=== PATIENT | male | born 1985 | race Caucasian/White ===

== ENCOUNTER 2023-07-21 04:15 | Emergency (ER) | payer BC ==
[~2023-07-21] VITALS: Ht 190.5 cm; Wt 86.2 kg
[2023-07-21] MEDS ORDERED: CEFTRIAXONE /D5W 50ML IVPB **ER PYXIS IV ONE (04:58)
[2023-07-21] MEDS: CEFTRIAXONE 1 G in IV DEXTROSE 5% 50 ML IV ONE (05:09)
[2023-07-21 05:13] LABS: BASOPHILS % (AUTO) 0.8 % (0.0-2.0); EOSINOPHILS % (AUTO) 1.1 % (0.0-7.0); HEMATOCRIT 42.9 % (31.2-41.9); HEMOGLOBIN 15.2 g/dL (10.9-14.3); LYMPHOCYTES # (AUTO) 1.3 K/uL (0.8-4.8); LYMPHOCYTES % (AUTO) 28.1 % (20.5-51.5); MEAN CORPUSCULAR HEMOGLOBIN 29.8 uug (24.7-32.8); MEAN CORPUSCULAR HGB CONC 35 g/dL (32.3-35.6); MEAN CORPUSCULAR VOLUME 84.3 fL (75.5-95.3); MONOCYTES # (AUTO) 0.7 K/uL (0.1-1.30); MONOCYTES % (AUTO) 14.7 % (0.0-11.0); NEUTROPHILS # (AUTO) 2.5 K/uL (1.8-8.9); NEUTROPHILS % (AUTO) 55.3 % (38.5-71.5); PLATELET COUNT (AUTO) 151 K/uL (179-408); RED BLOOD CELL COUNT(AUTO) 5.09 MIL/uL (3.63-4.92); RED CELL DISTRIBUTION WIDTH 13.6 % (12.3-17.7); WHITE BLOOD COUNT (AUTO) 4.5 K/uL (3.8-11.8)
[2023-07-21 05:29] LABS: DIFFERENTIAL COMMENT 1
[2023-07-21] MEDS ORDERED: ACYCLOVIR 200 MG CAPSULE ONE (05:59)
[2023-07-21] MEDS: ACYCLOVIR 400 MG TABLET PO ONE (06:01)
[2023-07-21 06:07] LABS: CALCIUM 8.7 mg/dL (8.5-10.1); POTASSIUM 3.9 mmol/L (3.5-5.1)
[2023-07-21 06:13] LABS: ALBUMIN 4.2 g/dL (3.4-5.0); BILIRUBIN,TOTAL 0.8 mg/dL (0.2-1.0); TOTAL PROTEIN, SERUM 7.5 g/dL (6.4-8.2)
[2023-07-21] MEDS ORDERED: SWABABLE VALVE TRANSFER SET EA MC ONE (06:55)
[2023-07-21] MEDS ORDERED: IOHEXOL 300MG/ML 100 ML INFUS..BTL ONE (06:55)
[2023-07-21] MEDS ORDERED: IV NORMAL SALINE 250 ML IV ONE (06:57)
[2023-07-21] MEDS ORDERED: PRED50TA PO (07:46)
[2023-07-21] MEDS ORDERED: VALA10002 PO (07:46)
[2023-07-21 07:55] VITALS: BP 121/70; O2SAT 99
== END 2023-07-21 07:56 | disposition home or self-care (01) ==
LOC: ER 04:22 → EDSEX 04:22 → ER 07:56
DX: B02.9 Zoster without complications (principal); L03.211 Cellulitis of face; R51.9 Headache, unspecified
CPT/HCPCS: 99285; 96365; 70487; 80053; 85025; 87040; 36415; 83605; J0696; Q9967; A4606; A4663

== ENCOUNTER 2023-12-11 15:38 | Emergency (ER) | payer BC ==
[~2023-12-11] VITALS: Ht 190.5 cm; Wt 86.2 kg
[~2023-12-11 15:38] MED LIST: PRED50TA PO; VALA10002 PO
[2023-12-11 15:49] VITALS: O2SAT 99
[2023-12-11 16:38] LABS: BASOPHILS # (AUTO) 0.1 K/UL (0.0-0.2); BASOPHILS % (AUTO) 0.9 % (0.0-2.0); EOSINOPHILS # (AUTO) 0.1 K/uL (0.0-0.7); EOSINOPHILS % (AUTO) 1.6 % (0.0-7.0); HEMATOCRIT 40.6 % (36.7-47.1); HEMOGLOBIN 13.6 g/dL (12.5-16.3); LYMPHOCYTES # (AUTO) 1.9 K/uL (0.8-4.8); LYMPHOCYTES % (AUTO) 33.2 % (20.5-51.5); MEAN CORPUSCULAR HGB CONC 33 g/dL (32.5-36.3); MEAN CORPUSCULAR VOLUME 86.8 fL (73.0-96.2); MONOCYTES # (AUTO) 0.6 K/uL (0.1-1.30); MONOCYTES % (AUTO) 10.8 % (0.0-11.0); NEUTROPHILS % (AUTO) 53.5 % (38.5-71.5); PLATELET COUNT (AUTO) 190 K/uL (152-348); RED BLOOD CELL COUNT(AUTO) 4.68 MIL/uL (4.06-5.63); RED CELL DISTRIBUTION WIDTH 13.3 % (12.1-16.2); WHITE BLOOD COUNT (AUTO) 5.6 K/uL (3.6-10.2)
[2023-12-11 16:41] LABS: DIFFERENTIAL COMMENT 1
[2023-12-11 16:45] LABS: CALCIUM 8.4 mg/dL (8.5-10.1); CREATININE 0.8 mg/dL (0.6-1.3); POTASSIUM 3.7 mmol/L (3.5-5.1)
== END 2023-12-11 17:42 | disposition home or self-care (01) ==
LOC: ER 15:39
DX: K21.9 Gastro-esophageal reflux disease without esophagitis (principal); E83.51 Hypocalcemia; R10.31 Right lower quadrant pain; E03.9 Hypothyroidism, unspecified; Z79.1 Long term (current) use of non-steroidal anti-inflammatories (NSAID); Z79.899 Other long term (current) drug therapy
CPT/HCPCS: 36415; 74018; 85025; A4606; A4663